=== PATIENT | female | born 1955 | race Caucasian/White ===

== ENCOUNTER → 2017-08-07 | Outpatient (CLI) | payer BC ==
--- NOTE | 2017-08-07 17:04 | PCVCIMAG ---
APPROVED REPORT Study performed: 08/07/2017 13:06:35 EXAM: Comprehensive 2D, Doppler, and color-flow Echocardiogram Patient Location: Echo lab Status: routine BSA: 1.71 HR: 82 bpmBP: 104/78 mmHg Rhythm: NSR Other Information Study Quality: Good Indications Mitral Valve Prolapse Palpitations 2D Dimensions LVEF(%): 75.33 (>50%) IVSd: 8.60 (7-11mm)LVOT Diam: 22.15 (18-24mm) LVDd: 40.67 mm PWd: 7.41 (7-11mm)Ascending Ao: 26.18 (22-36mm) LVDs: 22.92 (25-40mm) Left Atrium: 29.75 (27-40mm) Aortic Root: 23.20 mm LV Single Plane 4CH: 56.26 % LV Single Plane 2CH: 56.02 %Shabazz's LVEF: 56.14 % Biplane EF: 55.9 % Volumes Left Atrial Volume (Systole) Single Plane 4CH: 29.10 mLSingle Plane 2CH: 41.72 mL Biplane LA Volume: 35.00 mLLA ESV Index: 20.00 mL/m2 Aortic Valve AoV Peak Juan Luis.: 1.13 m/s AO Peak Gr.: 5.12 mmHgLVOT Max P.59 mmHg LVOT Max V: 0.95 m/s CONSUELO Vmax: 3.24 cm2 Mitral Valve E/A Ratio: 1.0 MV Decel. Time: 126.81 ms MV E Max Juan Luis.: 0.68 m/s MV A Juan Luis.: 0.68 m/s IVRT: 93.43 ms TDI E/Lateral E': 8.50E/Medial E': 8.50 Medial E' Juan Luis.: 0.08 m/s Lateral E' Juan Luis.: 0.08 m/s Pulmonary Valve PV Peak Juan Luis.: 0.94 m/sPV Peak Gr.: 3.53 mmHg Pulmonary Vein P Vein S: 0.35 m/sP Vein A: 0.26 m/s P Vein D: 0.27 m/sP Vein A Dur.: 103.8 msec P Vein S/D Ratio: 1.30 Tricuspid Valve TV Vmax: 0.62 m/s Left Ventricle The left ventricle is normal size. There is normal LV segmental wall motion. There is normal left ventricular wall thickness. Left ventricular systolic function is normal. The left ventricular ejection fraction is within the normal range. LVEF is 55-60%. The left ventricular diastolic function is normal. Right Ventricle The right ventricle is normal size. The right ventricular systolic function is normal. Atria The left atrium size is normal. The right atrium size is normal. Aortic Valve The aortic valve is normal in structure. No aortic regurgitation is present. There is no aortic valvular stenosis. Mitral Valve The mitral valve anterior leaflet mildly calcified. Mild prolapse of the posterior leaflet No mitral regurgitation. No evidence of mitral valve stenosis. Mild prolapse of the posterior mitral valve leaflet. Tricuspid Valve The tricuspid valve is normal in structure. There is no tricuspid valve regurgitation noted. Pulmonic Valve The pulmonary valve is normal in structure. There is no pulmonic valvular regurgitation. Great Vessels The aortic root is normal in size. The ascending aorta is normal in size. IVC is normal in size and collapses with >50% inspiration Pericardium There is no pericardial effusion. There is no pleural effusion. <Conclusion> Left ventricular systolic function is normal. There is normal LV segmental wall motion. LVEF 55-60%. The aortic valve is normal in structure. No aortic regurgitation or stenosis The mitral valve anterior leaflet mildly calcified. Mild prolapse of the posterior leaflet. No mitral regurgitation. Pulmonary artery pressure could not be reliably ascertained There is no pericardial effusion.
--- NOTE | 2017-08-07 17:09 | PCVCIMAG ---
APPROVED REPORT Patient Location: Echo lab - [facility] Room #: Stress Nurse: Katelynn Mcintosh RN INDICATIONS: Palpitations The patient exercised according to the Reagan protocol for 9:31 minutes, achieving a work level of 11.8 METS. The resting heart rate of 91 bpm maykel to a maximal heasrt rate od 141 bpm. This represents 88% of the maximal, age-predicted heart rate. The resting blood pressure was 104/78; maykel to a maximal level of 146/68. The exercise was stopped due to fatigue. No exercise-induced dysrhythmias. No ST segment shifts diagnostic of myocardial ischemia. Conclusion 1. Maximal treadmill exercise study negative for exercise-induced ischemia 2. No subjective signs of ischemia such as chest pain or anginal-like symptoms. No dysrhythmias. 3. The study was associated with good exercise capacity (11.8 METS)
== END | disposition home or self-care (01) ==
LOC: PCVCIMAG 13:00
PROVIDERS: ATTEND Internal Medicine
DX: I34.1 Nonrheumatic mitral (valve) prolapse (principal); E78.5 Hyperlipidemia, unspecified
CPT/HCPCS: 93017; 93306